=== PATIENT | female | born 1940 | race Caucasian/White ===

== ENCOUNTER 2016-08-19 20:10 | Emergency (ER) | payer OTHER ==
--- NOTE | 2016-08-19 21:31 | ED NURSING NOTES ---
Clinical Report - Nurses [facility] [address] [place] [address] 08/19/2016 20:10 Patient: CLEMENTINA HALL TRIAGE Triage time 21:06. Acuity: LEVEL 4. Chief Complaint: REDNESS TO LEFT EYE. --21:07 TonyaB, R.N. 21:06 08/19/16. BP: 141/72. HR: 66. RR: 18. O2 saturation: 97%. Temp: 97.3 F. Pain level now: 010. --21:07 TonyaB, R.N. Weight: 65.7 kg. Height/Length: 65 inches. BMI: 24.1. --21:06 TonyaB, R.N. Medications Coumadin Oral. --21:09 TonyaB, R.N. Atorvastatin Calcium Oral. --21:10 TonyaB, R.N. Iron Oral. --21:11 TonyaB, R.N. Temazepam Oral. --21:11 TonyaB, R.N. Allergies Aspirin. Iodine. --21:09 TonyaB, R.N. History Arrived by private vehicle. Historian: patient. Accompanied by family. Onset. (7 days). She did not sustain an injury. 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 PAST MEDICAL HX: Immunizations: up-to-date. SOCIAL HX: Never smoker. No alcohol use or drug use. No infectious disease exposure. SELF HARM ASSESSMENT: A self harm assessment was performed. The patient answered "no" to the question "Have you recently felt down, depressed, or hopeless?", "Have you noticed less interest or pleasure in doing things?", "Do you have thoughts of harming or killing yourself?", "Are you here because you tried to hurt yourself?", "Have you ever tried to hurt yourself before today?", "Have you recently had thoughts about harming or killing others?" and "Do you have any dangerous items in your possession?". FALL RISK ASSESSMENT: Fall risk assessment completed. No fall risk identified. NUTRITIONAL RISK ASSESSMENT: The nutritional risk assessment revealed no deficiencies. FUNCTIONAL ASSESSMENT: Functional assessment: no impairments noted. LEARNING NEEDS ASSESSMENT: The learning needs assessment revealed no barriers. SKIN INTEGRITY ASSESSMENT: Skin integrity risk assessment completed. No skin integrity risk identified. --21: Raji Amado ( pt states it started on Friday, pt denies any injury, eye is red). --21:11 Mali Amado. PROBLEMS: CVA - Cerebrovascular Accident. COPD - Chronic Obstructive Pulmonary Disease. 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 Ulna Fracture. Radius Fracture. Fall. Hypertension. Immunizations. --21: Char AmadoN. ADDITIONAL SURGERIES: Mitral valve surgery. Tonsillectomy. --21: Char AmadoN. Interventions ID band on patient. To treatment room. --21: Mali Amado. PHYSICAL ASSESSMENT Ambulatory to room. GENERAL / NEURO / PSYCH: Alert. Appears in no acute distress. HEENT: No facial asymmetry noted. Right ear within normal limits. Left ear within normal limits. Mouth inspection within normal limits. Pharynx within normal limits. RESPIRATORY: Respirations not labored. CVS: Capillary refill less than 2 seconds. SKIN: Skin is warm and dry. Normal skin turgor. --21:08 Mali Amado. NURSING PROGRESS NOTES Patient identifiers checked. Call light placed in reach. Side rails up x 1. Bed placed in lowest position. Brakes of bed on. --21:08 Mali Amado. Patient ID band checked for patient name and birthdate: patient confirmed. Blood samples drawn from the right antecubital space with Vacutainer and 18g butterfly by nurse: nan frankel. --21:19 Aneudy RRobbieN. DISPOSITION / DISCHARGE Condition at departure: improved. No learning barriers present. Discharge instructions provided and reviewed with the patient. Patient verbalized understanding. Written instructions provided in [place]. No warning instructions, medication instructions, treatment instructions, referrals given to the patient or diet instructions. No activity restrictions, note given or follow up contact number given. The patient was discharged by the physician assistant professor of spanish. She was discharged home and accompanied by spouse. She left the Emergency Department ambulatory and via private vehicle. Spouse driving. FALL RISK ASSESSMENT: Fall risk assessment completed. No fall risk identified. --21:53 Raji Amado 21:52 08/19/16. BP: 136/78. HR: 71. RR: 16. O2 saturation: 100%. Temp: deferred. Pain level now: 0/10. --21:53 Raji Amado Departure time: 21:53. --21:53 Raji Amado Locked/Released at 08/19/2016 21:53 by Raji Amado
--- NOTE | 2016-08-19 21:31 | ED ORDER SUMMARY ---
..... Patient: CLEMENTINA HALL OrderSheet [facility] VisitID: [id number] [address] [place] [address] 76y, F Registration Date/Time: 08/19/2016 ORDER SHEET Weight: 65.7 kg Allergies: Aspirin, Iodine GENERAL ORDERS: PT with INR Urgent (21:13 08/19/2016 EKkeisha P.A.-C) (21:18 TBownohelia R.N.) PTT Urgent (21:13 08/19/2016 EKkeisha P.A.-C) (21:18 TBowen R.N.) MEDICATION ORDERS: IV FLUIDS: ORDER SHEET NOTES: [Electronically signed by Barbara Vanegas R.N. (21:53 08/19/2016)] [Electronically signed by Oneyda Terry P.A.-C (22:43 08/19/2016)] [Electronically locked/signed by Barbara Vanegas R.N. (21:53 08/19/2016)]
--- NOTE | 2016-08-19 21:31 | ED ORDER SUMMARY ---
..... Patient: CLEMENTINA HALL OrderSheet [facility] VisitID: [id number] [address] [place] [address] 76y, F Registration Date/Time: 08/19/2016 ORDER SHEET Weight: 65.7 kg Allergies: Aspirin, Iodine GENERAL ORDERS: PT with INR Urgent (21:13 08/19/2016 EKkeisha P.A.-C) (21:18 TBownohelia R.N.) PTT Urgent (21:13 08/19/2016 EKkeisha P.A.-C) (21:18 TBowen R.N.) MEDICATION ORDERS: IV FLUIDS: ORDER SHEET NOTES: [Electronically signed by Barbara Vanegas R.N. (21:53 08/19/2016)] [Electronically signed by Oneyda Terry P.A.-C (22:43 08/19/2016)] [Electronically locked/signed by Barbara Vanegas R.N. (21:53 08/19/2016)]
--- NOTE | 2016-08-19 21:31 | ED CLINICAL REPORT ---
Clinical Report - Physicians/Mid Levels [facility] [address] [place] [address] 08/19/2016 20:10 [facility]AL [id number] Time Seen: 22:39 Aug 19 2016. Arrived- By private vehicle. Historian- patient. HISTORY OF PRESENT ILLNESS Chief Complaint: EYE REDNESS. This started 7 days, involves the left eye, is characterized as mild and is still present. The patient did not sustain an injury. Not injured from contact lenses. No eye pain, eye discomfort, eye burning or eye irritation or eye discharge. No eye matting, eye itching or eyelid swelling. Eye redness. ( Over the last 7 days patient has noticed some erythema of her eye. Denies any pain or vision changes. 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 Denies any shortness of breath. Denies any trauma, she has been working in the urine, lifting some minor things she reports, removing her head from up to down position. Reports some improvement over the last 2 days, however she was doing yard work today moving excessively and some worsening perhaps. Denies pain. Denies vision changes. Denies any foreign body sensation. Denies any direct trauma to the area. Denies any history of prior eye concerns, denies any corrective lenses wearing.). REVIEW OF SYSTEMS All systems otherwise negative, except as recorded above. PAST HISTORY No history of prior eye injury or glaucoma. She does not wear contact lenses. Problems: CVA - Cerebrovascular Accident. COPD - Chronic Obstructive Pulmonary Disease. 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 Ulna Fracture. Radius Fracture. Fall. Hypertension. Immunizations. LNMP - Last Normal Menstrual Period. Additional Surgeries: Mitral valve surgery. Tonsillectomy. Medications: Temazepam Oral. Iron Oral. Atorvastatin Calcium Oral. Coumadin Oral. Allergies: Aspirin. Iodine. SOCIAL HISTORY Never smoker. No alcohol use or drug use. PHYSICAL EXAM Appearance: Alert. No apparent distress. Does not appear to be anxious or in pain. Rt Eye: Right eye exam normal. Lt Eye: Conjunctival injury: medium sized subconjunctival hematoma localized to the medial and inferior aspect of the conjunctiva. No swelling or laceration. No injury to the periorbital area or eyebrow area, eyelid edema or erythema or conjunctival edema. No subconjunctival hemorrhage, corneal abrasion or EOM palsy. No stye present. No injury to the eyelids. Conjunctiva not injected. No exudate present. Neck: Neck supple. Normal inspection. CVS: Normal heart rate and rhythm. Heart sounds normal. Respiratory: No respiratory distress. Breath sounds normal. Neuro: Oriented X 3. LABS, X-RAYS, AND EKG Laboratory Tests: PT with INR: (YOAN: 08/19/2016 21:15) ( MsgRcvd 08/19/2016 21:30) Final results Test Result Flag Units (Reference) INR 2.6 H (0.8-1.2) Low Intensity Therapy: INR 1.5-2.0 PT range 18.5-23.1Mod.Intensity Therapy: INR 2.0-3.0 PT range 23.1-31.5High Intensity Therapy: INR 2.5-3.5 PT range 27.4-35.5High Intensity Therapy 2: INR 3.0-4.0 PT range 31.5-39.3 APTT 51 H SECONDS (24-34) . PROGRESS AND PROCEDURES Course of Care: patient has no pain. No signs of secondary infection. No active bleeding. Patient stable. Follow up outpatient. INR is above. Denies any hemoptysis epistaxis. Denies any melena. 08/19/2016 21:52 BP: 136/78. HR: 71. RR: 16. O2 saturation: 100%. Pain level now: 0/10. Patient is stable. Physical exam findings are unchanged. Symptoms better. Patient/family counseled. Differential Diagnosis: Above considerations are based on history and physical exam. Differential diagnosis was discussed with patient and patient's spouse. Disposition: Discharged. Condition: good. CLINICAL IMPRESSION Hemorrhage left eye. INSTRUCTIONS (INR 2.6). (Electronically signed by Oneyda Terry P.A.-C 08/19/2016 22:43)
--- NOTE | 2016-08-19 21:31 | ED NURSING NOTES ---
Clinical Report - Nurses [facility] [address] [place] [address] 08/19/2016 20:10 Patient: CLEMENTINA HALL TRIAGE Triage time 21:06. Acuity: LEVEL 4. Chief Complaint: REDNESS TO LEFT EYE. --21:07 TonyaB, R.N. 21:06 08/19/16. BP: 141/72. HR: 66. RR: 18. O2 saturation: 97%. Temp: 97.3 F. Pain level now: 010. --21:07 TonyaB, R.N. Weight: 65.7 kg. Height/Length: 65 inches. BMI: 24.1. --21:06 TonyaB, R.N. Medications Coumadin Oral. --21:09 TonyaB, R.N. Atorvastatin Calcium Oral. --21:10 TonyaB, R.N. Iron Oral. --21:11 TonyaB, R.N. Temazepam Oral. --21:11 TonyaB, R.N. Allergies Aspirin. Iodine. --21:09 TonyaB, R.N. History Arrived by private vehicle. Historian: patient. Accompanied by family. Onset. (7 days). She did not sustain an injury. 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 PAST MEDICAL HX: Immunizations: up-to-date. SOCIAL HX: Never smoker. No alcohol use or drug use. No infectious disease exposure. SELF HARM ASSESSMENT: A self harm assessment was performed. The patient answered "no" to the question "Have you recently felt down, depressed, or hopeless?", "Have you noticed less interest or pleasure in doing things?", "Do you have thoughts of harming or killing yourself?", "Are you here because you tried to hurt yourself?", "Have you ever tried to hurt yourself before today?", "Have you recently had thoughts about harming or killing others?" and "Do you have any dangerous items in your possession?". FALL RISK ASSESSMENT: Fall risk assessment completed. No fall risk identified. NUTRITIONAL RISK ASSESSMENT: The nutritional risk assessment revealed no deficiencies. FUNCTIONAL ASSESSMENT: Functional assessment: no impairments noted. LEARNING NEEDS ASSESSMENT: The learning needs assessment revealed no barriers. SKIN INTEGRITY ASSESSMENT: Skin integrity risk assessment completed. No skin integrity risk identified. --21: Raji Amado ( pt states it started on Friday, pt denies any injury, eye is red). --21:11 Mali Amado. PROBLEMS: CVA - Cerebrovascular Accident. COPD - Chronic Obstructive Pulmonary Disease. 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 Ulna Fracture. Radius Fracture. Fall. Hypertension. Immunizations. --21: Char AmadoN. ADDITIONAL SURGERIES: Mitral valve surgery. Tonsillectomy. --21: Char AmadoN. Interventions ID band on patient. To treatment room. --21: Mali Amado. PHYSICAL ASSESSMENT Ambulatory to room. GENERAL / NEURO / PSYCH: Alert. Appears in no acute distress. HEENT: No facial asymmetry noted. Right ear within normal limits. Left ear within normal limits. Mouth inspection within normal limits. Pharynx within normal limits. RESPIRATORY: Respirations not labored. CVS: Capillary refill less than 2 seconds. SKIN: Skin is warm and dry. Normal skin turgor. --21:08 Mali Amado. NURSING PROGRESS NOTES Patient identifiers checked. Call light placed in reach. Side rails up x 1. Bed placed in lowest position. Brakes of bed on. --21:08 Mali Amado. Patient ID band checked for patient name and birthdate: patient confirmed. Blood samples drawn from the right antecubital space with Vacutainer and 18g butterfly by nurse: nan frankel. --21:19 Aneudy RRobbieN. DISPOSITION / DISCHARGE Condition at departure: improved. No learning barriers present. Discharge instructions provided and reviewed with the patient. Patient verbalized understanding. Written instructions provided in [place]. No warning instructions, medication instructions, treatment instructions, referrals given to the patient or diet instructions. No activity restrictions, note given or follow up contact number given. The patient was discharged by the physician hotel administrative assistant. She was discharged home and accompanied by spouse. She left the Emergency Department ambulatory and via private vehicle. Spouse driving. FALL RISK ASSESSMENT: Fall risk assessment completed. No fall risk identified. --21:53 Raji Amado 21:52 08/19/16. BP: 136/78. HR: 71. RR: 16. O2 saturation: 100%. Temp: deferred. Pain level now: 0/10. --21:53 Raji Amado Departure time: 21:53. --21:53 Raji Amado Locked/Released at 08/19/2016 21:53 by Raji Amado
--- NOTE | 2016-08-19 22:43 | ED DISCHARGE INSTRUCTIONS ---
Patient: CLEMENTINA HALL General Instructions [facility] VisitID: [id number] [place] [address] 76y, F Registration Date/Time: 08/19/2016 Hemorrhage left eye. INSTRUCTIONS (INR 2.6). ADDITIONAL INFORMATION Subconjunctival Hemorrhage A subconjunctival hemorrhage is a result of a broken blood vessel in the white portion of the eye. It is usually painless and may be caused by coughing, sneezing or vomiting. An injury to the eye can cause this. It can also be a sign of hypertension (high blood pressure) or a bleeding disorder. Although it can look frightening, the presence of the blood is not serious. The blood will be reabsorbed without treatment within 2-3 weeks. Home Care: You may continue your usual activities. Get Prompt Medical Attention if any of the following occur: Pain in the eye Change in vision The blood does not disappear within three weeks Increasing redness or swelling of the eye Severe headache or dizziness Other signs of bruising or bleeding from other parts of your body Hyphema A HYPHEMA is the medical term for bleeding in the front part of the eye. This is caused when there is a direct blow to the eye (the lid may be open or closed). Since the blood is blocking the passage of light into the eye, it may cause blurred or dim vision. There may also be some pain. When the amount of bleeding is small, the body is able to absorb it and vision returns to normal. Large amounts of blood may need to be removed by surgery. Sometimes a re-bleed can occur within the next few days causing a minor injury to become a very severe one. Home Care: Rest for the next 24 hours with the head elevated on at least two pillows. Stay home from school or work and do not engage in any strenuous activities. You may take acetaminophen (Tylenol) for pain, unless another pain medicine was prescribed. Do not take aspirin or ibuprofen (Advil, Motrin) since these can cause re-bleeding. Limit eye movement. No reading. No driving. If an EYE PATCH was applied, DO NOT DRIVE a motor vehicle or operate machinery with the patch in place since you will have difficulty in judging distances with only one eye. Follow Up with the eye doctor (chef passenger vessel) that you were referred to for another exam. It is very important that you have a repeat eye exam within the next few days to be sure the blood is clearing. Get Prompt Medical Attention if any of the following occur: Increased eye pain or headache Worsening vision Increasing redness in the eye or swelling of the eyelids Drainage from the eye You have been given the following additional information: Subconjunctival Hemorrhage Hyphema (Electronically signed by Oneyda Terry P.A.-C 08/19/2016 22:43)
--- NOTE | 2016-08-19 22:43 | ED DISCHARGE INSTRUCTIONS ---
Patient: CLEMENTINA HALL General Instructions [facility] VisitID: [id number] [place] [address] 76y, F Registration Date/Time: 08/19/2016 Hemorrhage left eye. INSTRUCTIONS (INR 2.6). ADDITIONAL INFORMATION Subconjunctival Hemorrhage A subconjunctival hemorrhage is a result of a broken blood vessel in the white portion of the eye. It is usually painless and may be caused by coughing, sneezing or vomiting. An injury to the eye can cause this. It can also be a sign of hypertension (high blood pressure) or a bleeding disorder. Although it can look frightening, the presence of the blood is not serious. The blood will be reabsorbed without treatment within 2-3 weeks. Home Care: You may continue your usual activities. Get Prompt Medical Attention if any of the following occur: Pain in the eye Change in vision The blood does not disappear within three weeks Increasing redness or swelling of the eye Severe headache or dizziness Other signs of bruising or bleeding from other parts of your body Hyphema A HYPHEMA is the medical term for bleeding in the front part of the eye. This is caused when there is a direct blow to the eye (the lid may be open or closed). Since the blood is blocking the passage of light into the eye, it may cause blurred or dim vision. There may also be some pain. When the amount of bleeding is small, the body is able to absorb it and vision returns to normal. Large amounts of blood may need to be removed by surgery. Sometimes a re-bleed can occur within the next few days causing a minor injury to become a very severe one. Home Care: Rest for the next 24 hours with the head elevated on at least two pillows. Stay home from school or work and do not engage in any strenuous activities. You may take acetaminophen (Tylenol) for pain, unless another pain medicine was prescribed. Do not take aspirin or ibuprofen (Advil, Motrin) since these can cause re-bleeding. Limit eye movement. No reading. No driving. If an EYE PATCH was applied, DO NOT DRIVE a motor vehicle or operate machinery with the patch in place since you will have difficulty in judging distances with only one eye. Follow Up with the eye doctor (surgical tech) that you were referred to for another exam. It is very important that you have a repeat eye exam within the next few days to be sure the blood is clearing. Get Prompt Medical Attention if any of the following occur: Increased eye pain or headache Worsening vision Increasing redness in the eye or swelling of the eyelids Drainage from the eye You have been given the following additional information: Subconjunctival Hemorrhage Hyphema (Electronically signed by Oneyda Terry P.A.-C 08/19/2016 22:43)
--- NOTE | 2016-08-19 22:43 | ED MAR SUMMARY ---
..... Medication Administration Record [facility] [address] [place], [place] [id number] Patient: CLEMENTINA HALL Visit ID: [id number] 76y, F Weight: 65.7 kg Height/Length: 65 in BMI: 24.1 ALLERGIES: Aspirin, Iodine
--- NOTE | 2016-08-19 22:43 | ED MED RECONCILIATION SUMMARY ---
Patient: CLEMENTINA HALL Medication Reconciliation Report [facility] VisitID: [id number] [address] [place] [address] 76y, F Registration Date/Time: 08/19/2016 Weight: 65.7 kg Height/Length: 65 in. BMI: 24.1 ALLERGIES: Aspirin, Iodine The patient's Home Medications are listed below: THE FOLLOWING MEDICATIONS NEED TO BE RECONCILED: Atorvastatin Calcium Oral Coumadin Oral Iron Oral Temazepam Oral The source(s) of the original Home Medication information: Not obtained. The following Medications were given to the patient in the Emergency Department: None. The following Medications were prescribed to the patient: None.
--- NOTE | 2016-08-19 22:43 | ED MED RECONCILIATION SUMMARY ---
Patient: CLEMENTINA HALL Medication Reconciliation Report [facility] VisitID: [id number] [address] [place] [address] 76y, F Registration Date/Time: 08/19/2016 Weight: 65.7 kg Height/Length: 65 in. BMI: 24.1 ALLERGIES: Aspirin, Iodine The patient's Home Medications are listed below: THE FOLLOWING MEDICATIONS NEED TO BE RECONCILED: Atorvastatin Calcium Oral Coumadin Oral Iron Oral Temazepam Oral The source(s) of the original Home Medication information: Not obtained. The following Medications were given to the patient in the Emergency Department: None. The following Medications were prescribed to the patient: None.
--- NOTE | 2016-08-19 22:43 | ED MAR SUMMARY ---
..... Medication Administration Record [facility] [address], [place] [id number] Patient: CLEMENTINA HALL Visit ID: [id number] 76y, F Weight: 65.7 kg Height/Length: 65 in BMI: 24.1 ALLERGIES: Aspirin, Iodine
== END 2016-08-19 21:50 | disposition home or self-care (01) ==
LOC: ED SRH 20:10
DX: H11.32 Conjunctival hemorrhage, left eye (principal); I65.22 Occlusion and stenosis of left carotid artery; I10 Essential (primary) hypertension; J44.9 Chronic obstructive pulmonary disease, unspecified; Z86.73 Personal history of transient ischemic attack (TIA), and cerebral infarction without residual deficits; Z79.01 Long term (current) use of anticoagulants; Z88.8 Allergy status to other drugs, medicaments and biological substances
CPT/HCPCS: 90074; 94001; 94060